=== PATIENT | male | born 1955 | race Caucasian/White ===

== ENCOUNTER → 2017-02-09 | Outpatient (CLI) | payer BC, OTHER ==
[2017-01-11 11:19] LABS: HCT - HEMATOCRIT 43.5 % (42.0-52.0); HGB - HEMOGLOBIN 14.7 g/dL (14.0-18.0); MEAN CORPUSCULAR HEMOGLOBIN 31.8 pg (27.0-31.0); MEAN CORPUSCULAR HGB CONC 33.7 g/dL (32.0-36.0); MEAN CORPUSCULAR VOLUME 94.2 fL (80.0-94.0); MEAN PLATELET VOLUME 8.9 fL (7.4-11.4); RED BLOOD COUNT 4.61 10^6/uL (4.70-6.10); RED CELL DISTRIBUTION WIDTH 15.5 % (12.0-15.0); WHITE BLOOD COUNT 3.5 x10^3/uL (4.8-10.8)
[2017-01-11 11:46] LABS: ALBUMIN/GLOBULIN RATIO 1.7 (1.0-2.2); BILIRUBIN,TOTAL 0.8 mg/dL (0.2-1.0); BUN - BLOOD UREA NITROGEN 17 mg/dL (6-20); CALCIUM 9.5 mg/dL (8.5-10.3); CARBON DIOXIDE - CO2 30 mmol/L (21-32); CHLORIDE 102 mmol/L (101-111); CHOL/HDL RATIO 3.4 (<5.0); CHOLESTEROL 211 mg/dL; GFR - MDRD 75 (>89); GLUCOSE 77 mg/dL (70-100); HDL CHOLESTEROL 62 mg/dL; LDL/HDL RATIO 2.2 (<3.6); POTASSIUM 4.2 mmol/L (3.5-5.0); SODIUM 140 mmol/L (135-145); TOTAL PROTEIN 6.8 g/dL (6.7-8.2); TRIGLYCERIDES 74 mg/dL; VLDL CHOLESTEROL 15 mg/dL
[2017-01-11 11:50] LABS: HEMOGLOBIN A1C 0.45 g/dL
== END ==
LOC: LAB.F 08:00
PROVIDERS: ATTEND Family Medicine
DX: Z79.899 Other long term (current) drug therapy (principal); R73.9 Hyperglycemia, unspecified
CPT/HCPCS: 36415; 80053; 80061; 83036

== ENCOUNTER 2020-05-10 14:14 | Outpatient (CLI) | payer MEDICARE, OTHER | END 2020-05-10 14:15 | disposition home or self-care (01) | LOC: COV 14:14 | PROVIDERS: ATTEND Family Medicine | DX: J02.9 Acute pharyngitis, unspecified (principal); R09.81 Nasal congestion; Z20.828 Contact with and (suspected) exposure to other viral communicable diseases ==

== ENCOUNTER 2021-04-29 07:35 | Emergency (ER) | payer MEDICARE, OTHER ==
[2021-04-29] MEDS ORDERED: TETANUS/DIPHTHERIA/PERTUSSIS 0.5 ML SYRINGE IM ONE (07:50)
--- NOTE | 2021-04-29 07:52 | ED Physician Documentation ---
PD HPI UPPER EXT INJURY - Stated complaint Stated Complaint: GLF - History obtained from History obtained from: Patient - Additonal information Additional information: 66 yo male tripped and fell forward last night while running down his driveway. He has abrasions to the face, both hands, but no loss of consciousness or headache. Main complaint is right wrist pain. He is right-handed. He is unsure of last tetanus. Review of Systems Constitutional: reports: Reviewed and negative Nose: reports: Reviewed and negative Throat: reports: Reviewed and negative Cardiac: reports: Reviewed and negative Respiratory: reports: Reviewed and negative PD PAST MEDICAL HISTORY - Allergies Allergies/Adverse Reactions: Allergies Allergy/AdvReac Type Severity Reaction Status Date / Time Penicillins Allergy Hives Verified 04/29/21 07:56 PD ED PE NORMAL - Vitals Vital signs reviewed: Yes - General General: Alert and oriented X 3, No acute distress - HEENT HEENT: PERRL, EOMI, Other (Abrasions in the right eyebrow and cheek, no deformity or bony tenderness) - Neck Neck: No bony TTP - Cardiac Cardiac: RRR, No murmur - Respiratory Respiratory: No respiratory distress, Clear bilaterally, Other (No chest wall tenderness) - Derm Derm: Other (He has abrasions on both palms, the left pinky finger.) - Extremities Extremities: Other (Right wrist is mostly tender over the medial dorsal carpal bones, in the area of the pisiform. No scaphoid tenderness. No deformity. Pain with range of motion.) - Neuro Neuro: Alert and oriented X 3, Normal speech Results - Vitals Vitals: Vital Signs - 24 hr 04/29/21 07:46 Temperature 36.6 C Heart Rate 72 Respiratory 16 Rate Blood Pressure 172/89 H O2 Saturation 99 Oxygen O2 Source Room air - Rads (name of study) R wrist Radiology: EMP read contemporaneously (neg) PD MEDICAL DECISION MAKING - ED course ED course: 66-year-old gentleman presents with multiple abrasions and right wrist injury. The wrist x-ray is negative, he is placed in a Velcro wrist splint for comfort and given return precautions. Declined prescription pain medication. Departure - Departure Disposition: 01 Home, Self Care Clinical Impression: Multiple abrasions Injury of wrist Qualifiers: Encounter type: initial encounter Laterality: right Qualified Code(s): S69.91XA - Unspecified injury of right wrist, hand and finger(s), initial encounter Condition: Good Record reviewed to determine appropriate education?: Yes Instructions: ED Sprain Wrist, ED Abrasion Comments: For the abrasions, soap and water and keep them moist with an antibiotic ointment such as Neosporin or bacitracin. If wrist is not improved in a week, recheck with your doctor for consideration for repeat x-rays. Return for new or worsening symptoms.
[2021-04-29 07:55] VITALS: BP 172/89
--- NOTE | 2021-04-29 08:15 | XRAY Report ---
PROCEDURE: Wrist 4 View RT INDICATIONS: wrist injury TECHNIQUE: 4 views of the wrist were acquired. COMPARISON: None FINDINGS: Bones: No fractures or dislocations. No suspicious bony lesions. Scaphoid view: Unremarkable Soft tissues: No suspicious soft tissue calcifications. IMPRESSION: Unremarkable right wrist radiographs Reviewed by: Israel Regan MD on 04/29/2021 7:14 AM [facility] Approved by: Israel Regan MD on 04/29/2021 7:14 AM [facility] Station ID: [id number]
== END 2021-04-29 08:47 | disposition home or self-care (01) ==
LOC: ED 07:35
DX: S69.91XA Unspecified injury of right wrist, hand and finger(s), initial encounter (principal); S00.81XA Abrasion of other part of head, initial encounter; S00.211A Abrasion of right eyelid and periocular area, initial encounter; S60.512A Abrasion of left hand, initial encounter; S60.511A Abrasion of right hand, initial encounter; S60.417A Abrasion of left little finger, initial encounter; W01.0XXA Fall on same level from slipping, tripping and stumbling without subsequent striking against object, initial encounter; Y93.02 Activity, running; Y92.008 Other place in unspecified non-institutional (private) residence as the place of occurrence of the external cause; Z23 Encounter for immunization
CPT/HCPCS: 90471; 99282; 99283

== ENCOUNTER 2022-12-27 09:23 | Outpatient (CLI) | payer MEDICARE, OTHER ==
--- NOTE | 2022-12-27 10:09 | Sleep Patient Instructions ---
Sleep Center Visit Summary - Patient Visit Information Reason for Visit: Initial consult for evaluation of sleep disordered breathing and other sleep issues. - Patient Instructions Instructions Attached: Sleep Study, Sleep Clinic Visit Additional Instructions: You will be completing a sleep study, an in-lab polysomnography (PSG). You will follow-up in the sleep care office after the sleep study is completed to hear the results and talk about therapy, if needed. You will be called by our office staff to schedule this appointment, but you may contact us with any questions. - Clinic Information Contact: [facility] [address] [place] [address] [email or web address] T: [phone]
--- NOTE | 2022-12-27 10:13 | SLEEP CARE CONSULTATION ---
Information from patient questionnaire entered by Blessing Myles. I have reviewed and concur with the information entered by Blessing Myles. This document represents the service I personally performed and the decisions made by me, Eliana Hammond ARNP. History of Present Illness Service Date and Time: 12/27/2022922 Reason for Visit: New patient Chief Complaint: reports: Unrefreshed sleep, Snoring, Other (REFERRED BY CARDIOLOGY) Date of Onset: MANY YRS Usual bedtime: 10PM Time it takes to fall asleep: VARIES 1-2HRS Snores at night: Yes Observed to quit breathing while asleep: No Sleeps alone due to snoring: No Number of times waking at night: 4-5 Reasons for waking at night: reports: Bathroom. denies: Choking, Snoring, Gasping for air Toss, Turn, or Twitch while sleeping: Yes Recalls having dreams: Yes Usually gets out of bed at: 7-8AM Feels refreshed in the morning: No Morning headache: No Sleepy or fatigued during the day: Yes Ever fallen asleep while driving: No Takes day naps: No (occasionally) Dreams during day naps: Yes Prior sleep studies: No Additional HPI information: I had the pleasure of seeing JOANNE VARGAS today regarding the possibility of him having a sleep disorder. His current complaints are snoring and referred by cardiology. He has a history of SVT that was treated with an ablation in 2016. It did reduce his SVT but is it slowly increasing again. He states he does snore but it varies with his weight. He has gained about 15 pounds in last 4 years. He has not been told that he stops breathing during the night. He does occasionally experience heart palpitations. He states he is a light sleeper. He denies waking up choking or gasping for air. - Parasomnia Symptoms Ever been unable to move upon waking from sleep: No Walks in sleep: No Talks in sleep: Yes (mumbles) Ever acted out dreams in sleep: Yes (kicked out when dreaming) Ever felt weak in the knees when startled or emotional: No Bothered by creepy, crawly, restless sensations in legs: No Problems with memory or concentration: No Subjective Initial [place] Sleepiness Scale score: 2 (06/01/23) Past Medical History Past Medical History: reports: Hypertension, Other (SVT, ablation May 2016; prostatectomy 2009 for cancer) Social History The patient's occupation is a RE. Patient is / and lives in . Have you smoked in the past 12 months: No Alcohol use: Yes Alcohol amount and frequency: 1-2 DRINKS 1-2DAYS PER WEEK Caffeine use: No Family History Family history of sleep disordered breathing: No Allergies and Home Medications Known drug allergies: Yes (penicillins; amlodipine (causes palpitation to increase)) Drug allergies reviewed: Yes Home medication list reviewed: Yes (see updated list in EMR) Allergy and home medication list: Allergies Penicillins Allergy (Verified 12/26/22 09:53) Hives Review of Systems Weight gain over past 5 years: 15 Cardiovascular: reports: high blood pressure, palpitations Respiratory: denies: shortness of breath Gastrointestinal: denies: heartburn Urinary: reports: frequency Neurological: denies: headaches Psychiatric: denies: anxiety, depression Ear/Nose/Throat: reports: sinus problems, tonsillectomy, wisdom teeth removed Musculoskeletal: reports: joint pain Immunologic: denies: allergies to food or environment Physical Exam Vital signs obtained and entered by: BLESSING Bains MA Blood Pressure: 152/100 (LEFT ARM) Cuff size: regular Heart Rate: 71 O2 Saturation: 98 Height: 5 ft 8 in Weight: 201 lb 12.8 oz Body Mass Index: 30.7 BMI Classification: Obese Neck circumference: 16 Nostrils: patent to airflow Mouth and throat: narrow oropharynx Soft palate: long Hard palate: normal Uvula: normal Uvula visualization: 25% Mallampati Class III Tongue: enlarged in size with teeth glover on lateral edges Tonsils: absent bilaterally Neck: normal w/o lymphadenopathy or thyromegaly Heart: regular rate and rhythm Lungs: clear bilaterally Impression and Plan 1. Suspected Obstructive Sleep Apnea-Hypopnea Syndrome, as irregular snoring, frequent awakening during the night and unrefreshed sleep. Narrow oropharynx and obesity are common predisposing factors for obstructive sleep apnea-hypopnea syndrome. I recommend proceeding to polysomnography to confirm the diagnosis and to assess severity. If the patient has significant sleep disordered breathing, a manual CPAP titration study will also be performed to find the optimal treatment pressure. I informed the patient of what the sleep studies involve and after some discussion, obtained agreement to proceed. The pathophysiology of obstructive sleep apnea-hypopnea syndrome was discussed with the patient and health risks of cardiovascular and cerebrovascular disease if not treated. Risks of drowsy driving discussed in detail and patient advised to avoid long distance driving and to tube puller at the first sign of drowsiness. Patient is not sure if he wants to do a sleep study, he wants to discuss with cardiology before going forward with test. I advised him to call when he has been able to consult his shearer screen measurer and trimmer and he agreed to plan. * Schedule polysomnography +- manual CPAP titration study and return in 1-2 weeks after the study to discuss result and initiate therapy. * Avoid long distance driving or driving when feeling sleepy. * Avoid alcohol, sedative and muscle relaxant around bedtime. * Attempt to lose weight. * Review instructions provided by trained office staff on how to prepare for the sleep study. * Return for follow-up after sleep study completed. Counseling Topics: Weight loss health impact Visit Type: In Office Time Spent with Patient (minutes): 36 Provider Statement: I spent 100% of the Face to Face Visit with the patient with greater than 50% spent counseling the patient and coordination of care.
[2022-12-27 10:16] VITALS: BP 152/100
== END 2022-12-27 09:24 | disposition home or self-care (01) ==
LOC: SC 09:23
PROVIDERS: ATTEND Nurse Practitioner Family
DX: R06.83 Snoring (principal); G47.8 Other sleep disorders; I49.9 Cardiac arrhythmia, unspecified; I10 Essential (primary) hypertension; E66.9 Obesity, unspecified; Z68.30 Body mass index [BMI] 30.0-30.9, adult
CPT/HCPCS: 99203; G0463; 99212